=== PATIENT | male | born 1995 | race Caucasian/White ===

== ENCOUNTER 2017-07-04 14:50 | Emergency (ER) | payer OTHER ==
[2017-07-04] MEDS ORDERED: ONDANSETRON DISINTEGRATING 4 MG TAB PO ONE (15:15)
[2017-07-04] MEDS ORDERED: IBUPROFEN 600 MG TAB PO ONE (15:15)
--- NOTE | 2017-07-04 15:17 | EDPHY ---
H & P Time Seen by Provider: 07/04/17 15:11 HPI/ROS: Chief complaint. Head injury HPI. Patient is a 22-year-old male playing [employer] and hit heads with another player. It knocked him in a 3 6 D and then he fell to the ground. Did not lose conscious was dazed however. He has thrown up 4 times. Has headache. Feels continuing nauseated. Initially confused with some initial visual change but that has resolved. Continues to be nauseated. Denies neck pain, chest pain, other back pain, abdominal pain, injury to arms legs. No previous concussion ROS Constitutional. no fever/chills, no weakness Eyes. no problems with vision ENT. no sore throat, no nasal drainage Cardiovascular. no chest pain Respiratory. no shortness of breath, no cough Abdominal. Vomiting . no problems urinating MS. no calf pain/swelling, no neck/back pain, no joint pain Skin. no rash Lymph. no swollen glands Neuro. Head injury with headache Past Medical/Surgical History: Healthy Social History: Single, nonsmoker, no alcohol Smoking Status: Never smoked Physical Exam: General Appearance: Alert well-developed pale-appearing male vital signs stable Eyes: Pupils equal and round no pallor or injection. ENT, Mouth: Mucous membranes are moist. Tenderness in the left latter day area with some bump from his collision Respiratory: There are no retractions, lungs are clear to auscultation. Cardiovascular: Regular rate and rhythm. Gastrointestinal: Abdomen is soft and nontender, no masses, bowel sounds normal. Neurological: Awake and alert, sensory and motor exams grossly normal. Skin: Warm and dry, no rashes. Musculoskeletal: Neck is supple nontender. Extremities symmetrical, full range of motion. Psychiatric: Patient is oriented X 3, there is no agitation. Constitutional: Initial Vital Signs Temperature (C) 36.4 C 07/04/17 14:54 Heart Rate 61 07/04/17 14:54 Respiratory Rate 18 07/04/17 14:54 Blood Pressure 123/66 H 07/04/17 14:54 O2 Sat (%) 96 07/04/17 14:54 O2 Delivery Mode Room Air Allergies/Adverse Reactions: Penicillins Allergy (Verified 07/04/17 14:53) Home Medications: Medication Instructions Recorded Ondansetron Odt [Zofran Odt] 4 mg PO Q4PRN PRN #4 tab 07/04/17 Medical Decision Making - Diagnostics Imaging Results: Imaging Impressions Head CT 07/04/17 15:12 Impression: Normal noncontrast CT of the brain. Results called to Dr. Larry Barbosa at 3:40 PM at the time of the interpretation. Noncontrast head CT is normal Procedures: Zofran ODT. Ibuprofen ED Course/Re-evaluation: Re-evaluation 3:55 p.m. No longer having nausea. Will be given Tylenol for his headache. Patient and I discussed imaging study results, treatment plan including criteria for return importance of follow-up and further evaluation. He expresses understanding and agreement Differential Diagnosis: I considered skull fracture, intracranial bleeding. Patient clinically has concussion - Data Points Medications Given: Discontinued Medications Ondansetron HCl (Zofran Odt) 4 mg PO EDNOW ONE Stop: 07/04/17 15:16 Last Admin: 07/04/17 15:21 Dose: 4 mg Departure - Departure Disposition: Home, Routine, Self-Care Clinical Impression: Concussion Qualifiers: Encounter type: initial encounter Loss of consciousness presence/duration: without LOC Qualified Code(s): S06.0X0A - Concussion without loss of consciousness, initial encounter Condition: Good Instructions: Concussion (ED), Sports Concussion (ED) Additional Instructions: May use Tylenol 1000 mg every 6 hr as needed for headache. Frequent, small sips fluids well nauseated. Gradual diet advancement. Zofran if needed for nausea and vomiting. No activity that may result in head injury for 1 week after your symptoms resolve. Return for worsening symptoms. Re-evaluation 1-2 days especially if not improving Referrals: NONE *PRIMARY CARE P,. [Unknown] - As per Instructions Nolvia Burnette MD [Medical Doctor] - As per Instructions [facility] [employer] [facility] [Outside] - As per Instructions Prescriptions: Ondansetron Odt [Zofran Odt] 4 mg PO Q4PRN PRN #4 tab PRN Reason: Nausea/Vomiting, Use 1st
[2017-07-04] MEDS ORDERED: ACETAMINOPHEN 325 MG TAB ONE (15:59)
[2017-07-04] MEDS ORDERED: ACETAMINOPHEN 500 MG TAB PO ONE (15:59)
[2017-07-04 16:08] VITALS: BP 119/75
== END 2017-07-04 16:30 | disposition home or self-care (01) ==
DX: S06.0X0A Concussion without loss of consciousness, initial encounter (principal); W50.1XXA Accidental kick by another person, initial encounter; Y99.8 Other external cause status; Y93.74 Activity, frisbee